=== PATIENT | female | born 1980 | race Caucasian/White ===

== ENCOUNTER 2017-11-29 13:01 | Emergency (ER) | payer OTHER ==
[~2017-11-29] VITALS: Ht 165.1 cm; Wt 60.7 kg
[~2017-11-29 13:01] MED LIST: LOMOTIL TABLET1 EACH PO; NOHOMEMEDS
[2017-11-29] MEDS ORDERED: XYLOCAINE VISC100 ML PO (14:15)
[2017-11-29 14:32] VITALS: BP 128/81
== END 2017-11-29 14:33 | disposition home or self-care (01) ==
LOC: EME 13:01
DX: J02.0 Streptococcal pharyngitis (principal)
CPT/HCPCS: 87651 90; 99281; 99283; J0561